=== PATIENT | female | born 2000 | race Caucasian/White ===

== ENCOUNTER 2019-11-29 14:25 | Emergency (ER) | payer OTHER ==
[~2019-11-29] VITALS: Ht 180.3 cm; Wt 85.3 kg
[2019-11-29 14:42] VITALS: Ht 180.3 cm; Wt 85.3 kg
[2019-11-29 16:49] VITALS: BP 113/70
== END 2019-11-29 16:49 | disposition home or self-care (01) ==
LOC: ED 14:25
DX: S93.402A Sprain of unspecified ligament of left ankle, initial encounter (principal); W18.42XA Slipping, tripping and stumbling without falling due to stepping into hole or opening, initial encounter; Y93.89 Activity, other specified; Y92.89 Other specified places as the place of occurrence of the external cause; Y99.8 Other external cause status